=== PATIENT | female | born 1970 | race African-American/Black ===

== ENCOUNTER → 2021-03-29 | Day surgery (SDC) | payer OTHER ==
[~2021-03-29] MED LIST: BUPIVACAINE MPF 0.25% 10 ML VIAL. ONE; BUPIVACAINE MPF 0.25% 30 ML VIAL. ONE; LIDOCAINE 1% PF 30 ML VIAL. ONE
== END ==
LOC: SURG 10:06
PROVIDERS: ATTEND Anesthesiology
DX: M47.816 Spondylosis without myelopathy or radiculopathy, lumbar region (principal); M79.7 Fibromyalgia; Z88.8 Allergy status to other drugs, medicaments and biological substances; Z79.899 Other long term (current) drug therapy; Z98.890 Other specified postprocedural states
CPT/HCPCS: 64493; 64494; J3490

== ENCOUNTER → 2021-05-17 | Day surgery (SDC) | payer OTHER ==
[~2021-05-17] MED LIST changes: -BUPIVACAINE MPF 0.25% 30 ML VIAL. ONE; +DEXAMETHASONE SOD PHOS 10 MG/ML VIAL. ONE; +DEXAMETHASONE SOD PHOS 4 MG/ML VIAL. ONE; +IOHEXOL 300 MG/ML 50 ML VIAL. IV ONE; +IOHEXOL 300 MG/ML 50 ML VIAL. ONE; +LIDOCAINE 1% Multi-Dose 20 ML VIAL. ONE
[2021-05-17 09:23] VITALS: BP 162/92
== END | disposition home or self-care (01) ==
LOC: SURG 08:52
PROVIDERS: ATTEND Anesthesiology
DX: M51.16 Intervertebral disc disorders with radiculopathy, lumbar region (principal); M47.26 Other spondylosis with radiculopathy, lumbar region; M79.7 Fibromyalgia; Z79.899 Other long term (current) drug therapy
CPT/HCPCS: 64483; 64484; J1100; J3490; Q9967